=== PATIENT | female | born 1990 | race Caucasian/White ===

== ENCOUNTER 2018-01-05 04:17 | Outpatient (CLI) | payer MEDICAID ==
[2018-01-05 05:00] LABS: APPEARANCE,URINE SLIGHTLY-CLOUDY; BILIRUBIN,URINE NEGATIVE (NEGATIVE); COLOR,URINE YELLOW; GLUCOSE, URINE NEGATIVE (NEGATIVE); KETONES,URINE NEGATIVE (NEGATIVE); LEUKOCYTE ESTERASE,URINE NEGATIVE (NEGATIVE); NITRITE,URINE NEGATIVE (NEGATIVE); PROTEIN,URINE NEGATIVE (NEGATIVE); UROBILINOGEN,URINE NEGATIVE mg/dL (<2.0)
[2018-01-05 05:28] LABS: URINE AMPHETAMINES SCREEN NEGATIVE; URINE BARBITURATES SCREEN NEGATIVE; URINE BENZODIAZEPINES SCREEN NEGATIVE; URINE COCAINE SCREEN NEGATIVE; URINE MARIJUANA (THC) SCREEN NEGATIVE; URINE METHADONE SCREEN NEGATIVE; URINE PHENCYCLIDINE SCREEN NEGATIVE
[2018-01-05] MEDS ORDERED: RINGERS SOLUTION,LACTATED 1,000 ML IV PRN (05:57)
--- NOTE | 2018-01-05 08:22 | RADIOLOGY REPORT (SQ) ---
EXAM DESCRIPTION: U/S OB LIMITED COMPLETED DATE/TIME: 01/05/2018 8:08 am REASON FOR STUDY: cervical length 27 wk twins contractions COMPARISON: None. TECHNIQUE: Limited transvaginal grayscale ultrasound for evaluation of specific requested obstetrica l parameters. LIMITATIONS: None. FINDINGS: CERVICAL LENGTH: 3.1 cm Closed. Twin a: DAR: 4.3 cm largest Pocket. . FHR: 139 beats per minute. PRESENTATION: Cephalic. Twin B: DAR: 4.9 cm largest Pocket. . FHR: 140 beats per minute. PRESENTATION: Cephalic OTHER: No other significant findings. IMPRESSION: LIMITED OBSTETRICAL ULTRASOUND WITH MEASURED PARAMETERS DELINEATED ABOVE. Trimester of : Second trimester - 13 weeks 1 day to 27 weeks 6 days. TECHNICAL DOCUMENTATION: JOB ID: [id number] [employer]- All Rights Reserved
== END 2018-01-05 08:40 | disposition home or self-care (01) ==
LOC: LC 04:17
PROVIDERS: ATTEND Obstetrics & Gynecology Gynecology
PROC: 4A1HXCZ Monitoring of Products of Conception, Cardiac Rate, External Approach (ICD-10-PCS; principal; 2018-01-05)
DX: O60.02 Preterm labor without delivery, second trimester (principal); O30.002 Twin pregnancy, unspecified number of placenta and unspecified number of amniotic sacs, second trimester; Z3A.27 27 weeks gestation of pregnancy
CPT/HCPCS: 76815; 80307; 81001

== ENCOUNTER 2018-03-08 14:49 | Inpatient (IN) | payer MEDICAID ==
[2018-03-08] MEDS ORDERED: PENICILLIN G POTASSIUM 5,000,000 UNIT in DEXTROSE 5%-WATER 100 ML IV ONE (15:52)
[2018-03-08] MEDS ORDERED: OXYTOCIN/NORMAL SALINE 20 UNIT/1,000 ML RTUINJ IV PRN (15:52)
[2018-03-08] MEDS ORDERED: RINGERS SOLUTION,LACTATED 1,000 ML IV PRN (15:52)
[2018-03-08] MEDS ORDERED: RINGERS SOLUTION,LACTATED 300 ML IV ONE (15:52)
[2018-03-08 16:16] LABS: APPEARANCE,URINE CLEAR; BILIRUBIN,URINE NEGATIVE (NEGATIVE); COLOR,URINE STRAW; GLUCOSE, URINE NEGATIVE (NEGATIVE); KETONES,URINE NEGATIVE (NEGATIVE); LEUKOCYTE ESTERASE,URINE NEGATIVE (NEGATIVE); NITRITE,URINE NEGATIVE (NEGATIVE); PROTEIN,URINE NEGATIVE (NEGATIVE); URINE SPECIFIC GRAVITY 1.004; UROBILINOGEN,URINE NEGATIVE mg/dL (<2.0)
[2018-03-08 16:28] LABS: URINE AMPHETAMINES SCREEN NEGATIVE; URINE BARBITURATES SCREEN NEGATIVE; URINE BENZODIAZEPINES SCREEN NEGATIVE; URINE COCAINE SCREEN NEGATIVE; URINE MARIJUANA (THC) SCREEN NEGATIVE; URINE METHADONE SCREEN NEGATIVE; URINE PHENCYCLIDINE SCREEN NEGATIVE
[2018-03-08] MEDS ORDERED: PENICILLIN G-K 5 MILLION UNIT VIAL ONE ×2 (16:29→20:58)
[2018-03-08] MEDS ORDERED: OXYTOCIN/NORMAL SALINE 20 UNIT/1,000 ML RTUINJ ONE ×2 (16:30→21:44)
--- NOTE | 2018-03-08 16:31 | Admission Physical ---
Datetime Report Generated by CPN: 03/08/2018 16:31 CURRENT ADMISSION Chief Complaint: Scheduled Induction of Labor Indication for Induction: Indicated by Testing Indication for Induction- Other: MFM recommended delivery at 36wks due to [place]/Di TIUP Admit Impression : , Intrauterine ; No Active Labor Admit Plan: Admit to Unit; Initiate Labor Induction Protocol ALLERGIES Medication Allergies: No Medication Allergies: No Known Allergies (03/08/2018) Latex: No Latex Allergies Food Allergies: None Environmental Allergies: None OBSTETRICAL HISTORY EDC: 04/01/2018 00:00 : 1 Para: 0 Term: 0 : 0 SAB: 0 IAB: 0 Ectopic: 0 Livin Cesareans: 0 VBACs: 0 Multiple Births: 0 Gestational Diabetes: Yes Rh Sensitization: No Incompetent Cervix: No MICHAEL: No Infertility: No ART Treatment: No Uterine Anomaly: No IUGR: No Hx Previous C/S: No Macrosomia: No Hx Loss/Stillborn: No PIH: No Hx : No Placenta Previa/Abruption: No Depression/PP Depression: No PTL/PROM: No Post Hemorrhage: No Current Procedures: Ultrasound; NST Obstetrical History Comments: G1- current, mo-di twins SEE RECORDS Alcohol: No Marijuana : No Cocaine: No Other Illicit Drugs: No Cigarettes: Never Smoker. 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 Surgery: No Heart Disease: No Hosp/Surgery: No Autoimmune Disorder: No Anesthetic Complications: No Kidney Disease: No Abnormal Pap Smear: No Neuro/Epilepsy: No Psychiatric Disorders: No Other Medical Diseases: No Hepatitis/Liver Disease: No Significant Family History: No Varicosities/Phlebitis: No Trauma/Violence : No Thyroid Dysfunction: No Medical History Comments: Anemia INFECTIOUS HISTORY Gonorrhea: No Genital Herpes: No Chlamydia: No Tuberculosis: No Syphilis: No Hepatitis: No HIV/AIDS Exposure: No Rash or Viral Illness: No HPV: Yes Infectious History Comments: HPV 01/2017 PHYSICAL EXAM General: Normal HEENT: Normal Neurologic: Normal Thyroid: Deferred Heart: Normal Lungs: Normal Breast: Deferred Back: Normal Abdomen: Normal Genitourinary Exam: Normal Extremities: Normal DTRs: Normal Pelvic Type: Adequate Vital Signs: Reviewed VAGINAL EXAM Dilatation: 2 Effacement: 80 Station: -1 Contraction Comments: irreg MEMBRANES Membranes: Intact FETUS A EGA: 36.4 Monitoring: External US FHR- Baseline: 145 Variability: Moderate 6-25bpm Accelerations: 15X15 Decelerations: None FHR Category: Category I Presentation: Vertex Admit Comment: 27yo at 36+4ega presents for IOL due to MC/DA TIUP with GDM (not compliant with turning in logs), smoker, ASCUS with +HRHPV. Twin A did have polyhydramnios/Twin B marginal cord insertion. MFM recommended delivery in 36wks due to risk of TTTS in MC/DA TIUP. 1 hr GTT 199. GBS done on 03/07 but still pending. Will treat for GBS unknown with PCN. Will admit for IOL due to MFM recommendations. NICU and Anesthesia aware. ANticpate . Patient extensively counseled re: TIUP and vaginal delivery and risk of breech extraction if needed. Reassuring FWB x 2 and anticipate . FETUS B Monitoring: External US Variability: Moderate 6-25bpm Accelerations: 15X15 Decelerations: None FHR Category: Category I Presentation: Breech PLANS FOR LABOR AND DELIVERY Labor and Delivery: None Circumcision: N/A INFORMED CONSENT Informed Consent Obtained: Vaginal Delivery; Induction of Labor; Risks, Benefits and Alternatives Discussed Signature: with User ID: [email or web address]
[2018-03-08 16:36] LABS: ABSOLUTE EOSINOPHILS # (AUTO) 0.1 10^3/uL (0.0-0.6); ABSOLUTE LYMPHOCYTES (AUTO) 1.2 10^3/uL (0.5-4.7); ABSOLUTE NEUT (AUTO) 5.7 10^3/uL (1.7-8.2); BASOPHILS % (AUTO) 0.2 % (0-2); EOSINOPHILS % (AUTO) 0.7 % (0-6); HEMATOCRIT 29.3 % (36.0-47.0); LYMPHOCYTES % (AUTO) 14.5 % (13-45); MEAN CORPUSCULAR HEMOGLOBIN 29.7 pg (27.0-33.4); MEAN CORPUSCULAR HGB CONC 34.1 g/dL (32.0-36.0); MEAN CORPUSCULAR VOLUME 87 fl (80-97); MONOCYTES % (AUTO) 12.8 % (3-13); PLATELET COUNT 135 10^3/uL (150-450); RED BLOOD COUNT 3.36 10^6/uL (3.72-5.28); RED CELL DISTRIBUTION WIDTH 12.5 % (11.5-14.0); SEGMENTED NEUTROPHILS % (AUTO) 71.8 % (42-78); TOTAL CELLS COUNTED % (AUTO) 100 %
[2018-03-08] MEDS ORDERED: EPHEDRINE SULFATE INJ 50 MG/1 ML AMPULE ONE (19:45)
[2018-03-08] MEDS ORDERED: BUPIVACAINE HCL 0.25 % INJ/PF (2.5 MG/1 ML) 30 ML VIAL ONE (19:46)
[2018-03-08] MEDS ORDERED: FENTANYL/BUPIVACAINE/NS/PF 200 MCG/100 ML RTUINJ EPI ONE (19:46)
--- NOTE | 2018-03-08 20:24 | L&D Progress Notes ---
PROGRESS NOTES Datetime Report Generated by CPN: 03/08/2018 20:24 PROGRESS NOTE Impression: Normal Progression of Labor; Reassuring Heart Rate Procedures: Artificial ROM; Sterile Vag Exam Plan: Continue Present Management; Induction Informed Consent Obtained: Vaginal Delivery; Risks, Benefits and Alternatives Discussed Informed Consent Obtained: Vaginal Delivery; Induction of Labor; Risks, Benefits and Alternatives Discussed Vital Signs : Reviewed Comment: Pt now comfortable s/p epidural. cvx /-1. AROM with clear fluid. Will continue with pitocin and continue with IOL. Anticipate . Pt doing well. Dr. Chavira aware of patient status. VAGINAL EXAM Dilatation: 5 Dilatation: 2 Effacement: 90 Effacement: 80 Station: -1 Station: -1 Contractions: q 1-3 Contractions: irreg MEMBRANES Membranes: Ruptured Membranes: Intact Amniotic Fluid Color: Clear FETUS A FHR - Baseline: 145 Monitoring: External US Variability: Moderate 6-25bpm Accelerations: 15X15 Decelerations: None FHR Category: Category I Presentation: Vertex FETUS B FHR - Baseline: 155 Monitoring: External US Variability: Moderate 6-25bpm Accelerations: 15X15 Decelerations: None FHR Category: Category I Presentation: Breech Presentation: Breech SIGNATURE SIGNATURE: [id number];[id number] SIGNATURE: [id number] Signature: with User ID: [email or web address]
[2018-03-08] MEDS: PENICILLIN G POTASSIUM 2,500,000 UNIT in DEXTROSE 5%-WATER 50 ML IV SCH (21:03)
[2018-03-08] MEDS ORDERED: MISOPROSTOL 0.2 MG TABLET ONE (21:44)
[2018-03-08] MEDS ORDERED: LIDOCAINE 1% INJ-PF (10 MG/ML) 30 ML SDV ONE (21:44)
[2018-03-08] MEDS ORDERED: CITRIC ACID/SODIUM CITRATE ORAL SOLN 15 ML UDCUP ONE (21:45)
[2018-03-08] MEDS ORDERED: CEFAZOLIN 2 GM/D5W RTU 0 GM/0 ML RTUPB IV ONE (21:46)
[2018-03-09] MEDS ORDERED: GLYCERIN/WITCH HAZEL LEAF 1 EACH MED..PAD TP PRN (00:04)
[2018-03-09] MEDS ORDERED: ACETAMINOPHEN 325 MG TABLET PO PRN (00:04)
[2018-03-09] MEDS ORDERED: MAGNESIUM HYDROXIDE SUSP 30 ML UDCUP PO PRN (00:04)
[2018-03-09] MEDS ORDERED: NA PHOS,M-B/NA PHOS,DI-BA (ADULT) 133 ML ENEMA PR PRN (00:04)
[2018-03-09] MEDS ORDERED: MISOPROSTOL 0.2 MG TABLET PR PRN (00:04)
[2018-03-09] MEDS ORDERED: PROMETHAZINE HCL 25 MG SUPP.RECT PR PRN (00:04)
[2018-03-09] MEDS ORDERED: DIPHENHYDRAMINE HCL 25 MG CAPSULE PO PRN (00:04)
[2018-03-09] MEDS ORDERED: ACETAMINOPHEN WITH CODEINE #3 TABLET PO PRN (00:04)
[2018-03-09] MEDS ORDERED: PROMETHAZINE HCL 25 MG TABLET PO PRN (00:04)
[2018-03-09] MEDS ORDERED: DIPH/PERTUSS(ACELL)/TETANUS VAC/PF 0.5 ML SYR (>=10YO) IM PRN (00:04)
[2018-03-09] MEDS ORDERED: PSEUDOEPHEDRINE HCL 30 MG TABLET PO PRN (00:04)
[2018-03-09] MEDS ORDERED: DIBUCAINE 1% OINTMENT 28 GM TP PRN (00:04)
[2018-03-09] MEDS ORDERED: OXYTOCIN/NORMAL SALINE 20 UNIT/1,000 ML RTUINJ IV PRN (00:04)
[2018-03-09] MEDS ORDERED: ZOLPIDEM TARTRATE 5 MG TABLET PO PRN (00:04)
[2018-03-09] MEDS ORDERED: PROMETHAZINE HCL INJ 25 MG/1 ML VIAL IV PRN (00:04)
[2018-03-09] MEDS ORDERED: MEASLES,MUMPS&RUBELLA VACC/PF 0.5 ML VIAL SUBCUT PRN (00:04)
--- NOTE | 2018-03-09 00:20 | Warning Signs in Babies ---
VOD Warning Signs Datetime Report Generated by [facility]: 03/09/2018 00:20 VOD#608 -Warning Signs in Babies: Viewed with Parent(s)/Family (01/05/2018 04:19:Miryam Casillas RN)
[2018-03-09] MEDS: PENICILLIN G POTASSIUM 2,500,000 UNIT in DEXTROSE 5%-WATER 50 ML IV SCH (02:38)
[2018-03-09] MEDS: BENZOCAINE/MENTHOL AEROSOL SPRAY 56 ML TOP PRN ×2 (02:59→10:14)
[2018-03-09] MEDS: ACETAMINOPHEN WITH CODEINE #3 TABLET PO PRN ×2 (03:00→17:11)
[2018-03-09] MEDS: IBUPROFEN 800 MG TABLET PO SCH ×3 (06:37→21:40)
[2018-03-09] MEDS: PRENATAL VITAMIN W DHA CAPSULE PO SCH (10:13)
[2018-03-09] MEDS: DOCUSATE SODIUM 100 MG CAPSULE PO SCH ×2 (10:13→17:12)
[2018-03-09] MEDS: FAMOTIDINE 20 MG TABLET PO SCH ×2 (10:13→21:41)
[2018-03-09] MEDS: FERROUS SULFATE 325 MG TABLET PO SCH ×2 (10:13→17:12)
[2018-03-09] MEDS: SENNOSIDES/DOCUSATE 8.6-50 MG 1 EACH TABLET PO SCH (10:14)
--- NOTE | 2018-03-09 13:14 | PDOC PROGRESS REPORT ---
Subjective-OB Progress Note for:: 03/09/18 Physical Exam (OB) Vital Signs: Temp Pulse Resp BP Pulse Ox 98.5 F 63 16 120/74 98 03/09/18 08:29 03/09/18 08:29 03/09/18 08:29 03/09/18 08:29 03/09/18 08:29 Intake & Output 03/08/18 03/09/18 03/10/18 06:59 06:59 06:59 Weight 67.1 kg - Lochia Lochia Amount: Scant < 10 ml Lochia Color: Rubra/Red - Abdomen Description: Soft, Round Hernia Present: No Bowel Sounds: Normoactive Flatus Presence: Present Stool: Yes Fundal Description: Firm, Midline Fundal Height: u/u - u/2 Objective-Diagnostic Laboratory: 03/08/18 16:10 03/08/18 03/08/18 03/08/18 15:05 16:10 16:10 WBC 8.0 RBC 3.36 L Hgb 10.0 L Hct 29.3 L MCV 87 MCH 29.7 MCHC 34.1 RDW 12.5 Plt Count 135 L Seg Neutrophils % 71.8 Lymphocytes % 14.5 Monocytes % 12.8 Eosinophils % 0.7 Basophils % 0.2 Absolute Neutrophils 5.7 Absolute Lymphocytes 1.2 Absolute Monocytes 1.0 Absolute Eosinophils 0.1 Absolute Basophils 0.0 Urine Color STRAW Urine Appearance CLEAR Urine pH 7.0 Ur Specific Armbrust 1.004 Urine Protein NEGATIVE Urine Glucose (UA) NEGATIVE Urine Ketones NEGATIVE Urine Blood NEGATIVE Urine Nitrite NEGATIVE Ur Leukocyte Esterase NEGATIVE Urine WBC (Auto) 1 Urine RBC (Auto) 1 Blood Type A POSITIVE Antibody Screen NEGATIVE
[2018-03-10] MEDS: IBUPROFEN 800 MG TABLET PO SCH ×3 (07:09→21:49)
[2018-03-10 08:47] LABS: HEMATOCRIT 28.9 % (36.0-47.0); HEMOGLOBIN 9.8 g/dL (12.0-15.5); MEAN CORPUSCULAR HEMOGLOBIN 29.6 pg (27.0-33.4); MEAN CORPUSCULAR VOLUME 87 fl (80-97); PLATELET COUNT 138 10^3/uL (150-450); RED BLOOD COUNT 3.33 10^6/uL (3.72-5.28); RED CELL DISTRIBUTION WIDTH 12.5 % (11.5-14.0); WHITE BLOOD COUNT 7.5 10^3/uL (4.0-10.5)
--- NOTE | 2018-03-10 09:52 | PDOC PROGRESS REPORT ---
Subjective-OB Progress Note for:: 03/10/18 Subjective: Doing well, holding babies, babies unable to go today, breasfeeding, ambulating , voiding Physical Exam (OB) Vital Signs: Temp Pulse Resp BP Pulse Ox 97.4 F 68 18 110/73 100 03/10/18 08:09 03/10/18 08:09 03/10/18 08:09 03/10/18 08:09 03/10/18 08:09 Intake & Output 03/09/18 03/10/18 03/11/18 06:59 06:59 06:59 Weight 67.1 kg - Lochia Lochia Amount: Scant < 10 ml Lochia Color: Rubra/Red - Abdomen Description: Soft Hernia Present: No Fundal Description: Firm, Midline Fundal Height: u/u - u/2 Objective-Diagnostic Laboratory: 03/10/18 07:39 03/10/18 07:39 WBC 7.5 RBC 3.33 L Hgb 9.8 L Hct 28.9 L MCV 87 MCH 29.6 MCHC 34.0 RDW 12.5 Plt Count 138 L Assessment and Plan(PN) - Assessment and Plan (1) delivery Is this a current diagnosis for this admission?: Yes (2) Twin , delivered vaginally, current hospitalization Is this a current diagnosis for this admission?: Yes (3) Monochorionic diamniotic twin gestation Qualifiers: Trimester: first trimester Qualified Code(s): O30.031 - Twin , monochorionic/diamniotic, first trimester Is this a current diagnosis for this admission?: Yes (4) Gestational diabetes Qualifiers: Gestational diabetes mellitus control: diet-controlled Is this a current diagnosis for this admission?: Yes - Time Spent with Patient Time with patient: Less than 15 minutes Medications reviewed and adjusted accordingly: Yes - Disposition Anticipated Discharge: Home Within: within 24 hours
[2018-03-10] MEDS: PRENATAL VITAMIN W DHA CAPSULE PO SCH (10:34)
[2018-03-10] MEDS: DOCUSATE SODIUM 100 MG CAPSULE PO SCH ×2 (10:34→17:13)
[2018-03-10] MEDS: SENNOSIDES/DOCUSATE 8.6-50 MG 1 EACH TABLET PO SCH (10:35)
[2018-03-10] MEDS: FERROUS SULFATE 325 MG TABLET PO SCH ×2 (10:35→17:13)
[2018-03-10] MEDS: FAMOTIDINE 20 MG TABLET PO SCH ×2 (10:35→21:49)
[2018-03-11] MEDS: IBUPROFEN 800 MG TABLET PO SCH (05:00)
--- NOTE | 2018-03-11 09:13 | PDOC PROGRESS REPORT ---
Subjective-OB Progress Note for:: 03/11/18 Subjective: Doing well, no c/o, ready to go home, not sure if both babies are going, breast feeding, eating well, scant bleeding Physical Exam (OB) Vital Signs: Temp Pulse Resp BP Pulse Ox 98.4 F 71 16 120/76 99 03/10/18 19:54 03/10/18 19:54 03/10/18 19:54 03/10/18 19:54 03/10/18 19:54 - PIH/Pre-Eclampsia DTR's: 2 + Clonus: Negative Headache: Absent Epigastric Pain: No Visual Changes: No - Lochia Lochia Amount: Scant < 10 ml Lochia Color: Rubra/Red - Abdomen Description: Tender, Soft, Round Hernia Present: No Fundal Description: Firm, Midline Fundal Height: u/u - u/2 Objective-Diagnostic Laboratory: 03/10/18 07:39 Assessment and Plan(PN) - Assessment and Plan (1) delivery Is this a current diagnosis for this admission?: Yes (2) Twin , delivered vaginally, current hospitalization Is this a current diagnosis for this admission?: Yes (3) Monochorionic diamniotic twin gestation Qualifiers: Trimester: first trimester Qualified Code(s): O30.031 - Twin , monochorionic/diamniotic, first trimester Is this a current diagnosis for this admission?: Yes (4) Gestational diabetes Qualifiers: Gestational diabetes mellitus control: diet-controlled Is this a current diagnosis for this admission?: Yes - Time Spent with Patient Time with patient: Less than 15 minutes Medications reviewed and adjusted accordingly: Yes - Disposition Anticipated Discharge: Home Within: Other - home today
--- NOTE | 2018-03-11 09:17 | PDOC DISCHARGE SUMMARY ---
Final Diagnosis Discharge Date: 03/11/18 - Final Diagnosis (1) delivery Is this a current diagnosis for this admission?: Yes (2) Twin , delivered vaginally, current hospitalization Is this a current diagnosis for this admission?: Yes (3) Monochorionic diamniotic twin gestation Is this a current diagnosis for this admission?: Yes (4) Gestational diabetes Is this a current diagnosis for this admission?: Yes Discharge Data - Discharge Medication Home Medications: Prenat 115/Iron Fum/Folic/Dss [ 19 Tablet] 1 tab PO DAILY 01/05/18 Gestational Age: 36.4 Reason(s) for Admission: Induction of Labor, Gestional Diabetes Procedures: NST, Ultrasound Intrapartum Procedure(s): Spontaneous Vaginal Delivery Complication(s): Laceration-Perineal Laceration-Degree: 1st - [place] Data Baby 1 Female Home with Mother: Yes Complications: No Baby 2 Female Home with Mother: Yes Complications: No - Diagnosis Test Laboratory: Temp Pulse Resp BP Pulse Ox 98.4 F 71 16 120/76 99 03/10/18 19:54 03/10/18 19:54 03/10/18 19:54 03/10/18 19:54 03/10/18 19:54 03/08/18 03/08/18 03/10/18 15:05 16:10 07:39 RBC 3.36 L 3.33 L Hgb 10.0 L 9.8 L Hct 29.3 L 28.9 L Urine Opiates Screen NEGATIVE - Discharge information/Instructions Discharge Activity: Activity As Tolerated, No Lifting Over 10 Pounds, No Lifting /Push/Pulling, Pelvic Rest Discharge Diet: As Tolerated, Regular Disposition: HOME, SELF-CARE Follow up with: [facility] in: 4, Weeks
--- NOTE | 2018-03-11 09:29 | Delivery Summary ---
Del Sum A-C Datetime Report Generated by CPN: 03/11/2018 09:29 DELIVERY PERSONNEL DELIVERY PERSONNEL: [id number] Delivery Doctor:: Rabia Bolanos MD Anesthesiologist:: Elijah Chavira MD PHP ARCHITECT:: Guadalupe Barboza CRNA Labor and Delivery Nurse:: Miryam Cifuentes RN Labor and Delivery Nurse:: Melissa Ghotra RN Nursery Nurse:: Tatyana Gonzalez RN Nursery Nurse:: Apryl Shabazz RN Medical Affairs Director/EARLY CHILDHOOD COORDINATOR: Lilliam Garsia CNA MATERNAL INFORMATION Delivery Anesthesia: Epidural Medications After Delivery: Pitocin Bolus-Please Comment; Pitocin Drip 20 Units/1000ml NSS Estimated Blood Loss (ml): 250 Maternal Complications: None Provider Comments: Called for evaluation due to pelvic pressure. Cvx c/c/+2. Pt comfortable with epidural. NICU and Anesthesia Notified regarding moving to the OR for delivery of TIUP. Known Vertex/Breech presentation. Risks of Twin vaginal delivery and risks of breech extractions reviewed with patient previously. All questions answered. Upon arrival to the OR, patient moved to the bed and positioned. Anesthesia and NICU present. Cvx c/c/+2 and patient began pushing and Baby A and B tolerating well. Baby A VFI delivered in EDWARD presentation with right compound hand. No nuchal cord. Shoulders and body delivered without difficulty. Cord doubly clamped and cut and to maternal abdomen for NRP. One clamp placed on Baby A cord (placenta side). Position of Baby B assessed and noted vertex and baby B quickly descending. 2 maternal pushes effectively delivered Baby B delivered in Direct OA presentation. No nuchal cord. Shoulders and body delivered without difficulty. Cord doubly clamped and cut and infant to NICU team. Placenta delivered intact spontaneously. FF at U. Cytotec 1000mcg per rectum placed for uterine tone. 1st degree perineal laceration and right labial laceration repaired in usual fashion. Good hemostasis. Baby A Apgars 9/9. Baby B Apgars 8/9. LABOR SUMMARY EDC: 04/01/2018 00:00 No. Babies in Womb: 2 Attempted: No Labor Anesthesia: Epidural LABOR INFORMATION Reason for Induction: Indicated by Testing Reason for Induction- Other: [place]/Di TIUP, MFM recommended Delivery 36wks Onset of Labor: 03/08/2018 18:59 Complete Dilatation: 03/08/2018 22:45 Oxytocin: Induction Group B Beta Strep: UNKNOWN Antibiotics # of Doses: 2 Antibiotics Time of Last Dose: 2102 Name of Antibiotic Given: Penicilin MEMBRANES Membranes Rupture Method: Artificial Rupture of Membranes: 03/08/2018 20:19 Length of Rupture (hr): 3.20 Amniotic Fluid Color: Clear Amniotic Fluid Amount: Moderate Amniotic Fluid Odor: Normal STAGES OF LABOR Stage 1 hr: 3 Stage 1 min: 46 Stage 2 hr: 0 Stage 2 min: 46 Stage 3 hr: 0 Stage 3 min: 5 Total Time in Labor hr: 4 Total Time in Labor min: 37 VAGINAL DELIVERY Episiotomy: None Episiotomy: None Laceration #1: Perineal Laceration #1: Vaginal Laceration Extension #1: First Degree Laceration #2: Vaginal Laceration Extension #2: N/A Laceration Repair: Yes Laceration Repair: Yes Laceration Repair Note: Right labial laceration repaired in usual fashion. Sponge Count Correct: Yes Sharps Count Correct: Yes CSECTION DELIVERY Primary Indication: N/A Secondary Indication: N/A CSection Incision: N/A BABY A INFORMATION Delivery Date/Time: 03/08/2018 23:31 Method of Delivery: Vaginal Born in Route : No : N/A Forceps: N/A Vacuum Extraction: N/A Shoulder Dystocia : No PRESENTATION/POSITION BABY A Presentation: Cephalic Presentation: Cephalic Cephalic Presentation: Vertex Vertex Position: Right Occipital Anterior Breech Presentation: N/A PLACENTA INFORMATION BABY A Placenta Delivery Time : 03/08/2018 23:36 Placenta Method of Delivery: Spontaneous Placenta Status: Delivered SCORES BABY A Heart Rate 1 min: >100 bpm Resp Effort 1 min: Good Cry Reflex Irritability 1 min: Cough or Sneeze or Pulls Away Muscle Tone 1 min: Active Motion Color 1 min: Body [place], Extremities Blue Resuscitation Effort 1 min: Tactile Stimulation SCORE 1 MIN: 9 Heart Rate 5 min: >100 bpm Resp Effort 5 min: Good Cry Reflex Irritability 5 min: Cough or Sneeze or Pulls Away Muscle Tone 5 min: Active Motion Color 5 min: Body [place], Extremities Blue Resuscitation Effort 5 min: Tactile Stimulation SCORE 5 MIN: 9 INFANT INFORMATION BABY A Gestational Age at Delivery: 36.4 Gestational Status: Late - 34- 36.6 Weeks Infant Outcome : Liveborn Condition : Stable Sex: Female IDENTIFICATION BABY A Infant Verification Date/Time: 03/08/2018 23:59 ID Band Number: [id number] Mother's Name Verified: Yes Infant RN Verifying : B Cano, RN Additional Verifying Personnel: Mirta Hopkins, RN WEIGHT/LENGTH BABY A Birthweight (gm): 2285 Weight (lb): 5 Infant Weight (oz): 1 Length (in): 18.50 Length (cm): 46.99 CORD INFORMATION BABY A No. Cord Vessels: 3 Nuchal Cord : Around Neck x1, Loose Cord Blood Taken: Yes-For Storage (Mom's Blood type +) Infant Suction: Mouth; Nose ASSESSMENT BABY A Complications: None Physical Findings at Delivery: Within Normal Limits Respirations: Appears Normal Skin to Skin: No (Annotations: infant unavailable) Skin to Skin: Yes Transferred To: [facility] BABY B INFORMATION Infant Delivery Date/Time: 03/08/2018 23:33 Method of Delivery : Vaginal Born in Route : No : N/A Forceps : N/A Vacuum Extraction: N/A Shoulder Dystocia : No SHOULDER DYSTOCIA BABY B Delivery Date/Time: 03/08/2018 23:33 PRESENTATION/POSITION BABY B Presentation : Cephalic Cephalic Position : Vertex Vertex Position: Direct Occiptal Anterior Breech Position: N/A ROM/PLACENTA INFO BABY B Rupture of Membranes: 03/08/2018 23:33 Length of Rupture (hr): 0.00 Placenta Delivery Time : 03/09/2018 23:36 Placenta Method of Delivery: Spontaneous Placental Status : Delivered SCORES BABY B Heart Rate 1 min: >100 bpm Resp Effort 1 min: Good Cry Reflex Irritability 1 min: Cough or Sneeze or Pulls Away Muscle Tone 1 min: Some Flexion of Extremities Color 1 min: Body [place], Extremities Blue Resuscitation Effort 1 min: Tactile Stimulation SCORE 1 MIN: 8 Heart Rate 5 min: >100 bpm Resp Effort 5 min: Good Cry Reflex Irritability 5 min: Cough or Sneeze or Pulls Away Muscle Tone 5 min: Active Motion Color 5 min: Body [place], Extremities Blue Resuscitation Effort 5 min: Tactile Stimulation SCORE 5 MIN: 9 INFORMATION BABY B Gestational Age at Delivery: 36.4 Gestational Status : Late - 34- 36.6 Weeks Outcome : Liveborn Condition : Stable Infant Sex : Female IDENTIFICATION BABY B Infant Verification Date/Time: 03/09/2018 00:04 ID Band Number : [id number] Mother's Name Verified: Yes RN Verifying : B Cano, RN Additional Verifying Personnel: K Paradise, RN WEIGHT/LENGTH BABY B Birthweight (gm): 2040 Weight (lb) : 4 Infant Weight (oz): 8 Infant Length (in): 18.00 Infant Length (cm): 45.72 CORD INFORMATION BABY B No. Cord Vessels : 3 Nuchal Cord : N/A Cord Blood Taken : Yes-For Storage (Mom's Blood Type +) Suction : Mouth; Nose ASSESSMENT BABY B Skin to Skin: Yes SIGNATURES Signature: with User ID: [email or web address]
[2018-03-11] MEDS: FAMOTIDINE 20 MG TABLET PO SCH (09:31)
[2018-03-11] MEDS: FERROUS SULFATE 325 MG TABLET PO SCH (09:31)
[2018-03-11] MEDS: PRENATAL VITAMIN W DHA CAPSULE PO SCH (09:31)
[2018-03-11] MEDS: SENNOSIDES/DOCUSATE 8.6-50 MG 1 EACH TABLET PO SCH (09:31)
[2018-03-11] MEDS: DOCUSATE SODIUM 100 MG CAPSULE PO SCH (09:32)
[2018-03-11 10:08] VITALS: BP 111/74
== END 2018-03-11 12:15 | disposition home or self-care (01) | DRG 775 ==
LOC: LR 14:49 → 2S 03-09 02:23
PROVIDERS: ADMIT Student in an Organized Health Care Education/Training Program; ATTEND Student in an Organized Health Care Education/Training Program
PROC: 10E0XZZ Delivery of Products of Conception, External Approach (ICD-10-PCS; principal; 2018-03-08)
PROC: 0HQ9XZZ Repair Perineum Skin, External Approach (ICD-10-PCS; 2018-03-08)
PROC: 10907ZC Drainage of Amniotic Fluid, Therapeutic from Products of Conception, Via Natural or Artificial Opening (ICD-10-PCS; 2018-03-08)
PROC: 3E033VJ Introduction of Other Hormone into Peripheral Vein, Percutaneous Approach (ICD-10-PCS; 2018-03-08)
PROC: 4A1HXCZ Monitoring of Products of Conception, Cardiac Rate, External Approach (ICD-10-PCS; 2018-03-08)
DX: O60.14X0 Preterm labor third trimester with preterm delivery third trimester, not applicable or unspecified (principal); O70.0 First degree perineal laceration during delivery; O30.033 Twin pregnancy, monochorionic/diamniotic, third trimester; O24.420 Gestational diabetes mellitus in childbirth, diet controlled; O99.334 Smoking (tobacco) complicating childbirth; F17.210 Nicotine dependence, cigarettes, uncomplicated; O40.3XX1 Polyhydramnios, third trimester, fetus 1; O32.6XX1 Maternal care for compound presentation, fetus 1; O69.81X1 Labor and delivery complicated by cord around neck, without compression, fetus 1; Z3A.36 36 weeks gestation of pregnancy; Z37.2 Twins, both liveborn
CPT/HCPCS: 36415; 80307; 81001; 82962; 85025; 85027; 86592; 86850; 86900; 86901; 88307; C1726; J0690; J2540; J2590; J3490

== ENCOUNTER 2020-07-17 11:42 | Outpatient (CLI) | payer MEDICAID ==
[2020-07-17 12:25] LABS: APPEARANCE,URINE SLIGHTLY-CLOUDY; BILIRUBIN,URINE NEGATIVE (NEGATIVE); COLOR,URINE YELLOW; GLUCOSE, URINE NEGATIVE (NEGATIVE); KETONES,URINE NEGATIVE (NEGATIVE); LEUKOCYTE ESTERASE,URINE SMALL (NEGATIVE); NITRITE,URINE NEGATIVE (NEGATIVE); PROTEIN,URINE NEGATIVE (NEGATIVE)
[2020-07-17 12:47] LABS: URINE AMPHETAMINES SCREEN NEGATIVE; URINE BARBITURATES SCREEN NEGATIVE; URINE BENZODIAZEPINES SCREEN NEGATIVE; URINE COCAINE SCREEN NEGATIVE; URINE MARIJUANA (THC) SCREEN NEGATIVE; URINE METHADONE SCREEN NEGATIVE; URINE PHENCYCLIDINE SCREEN NEGATIVE
== END 2020-07-17 12:42 | disposition home or self-care (01) ==
LOC: LC 11:42
PROVIDERS: ATTEND Obstetrics & Gynecology
DX: O47.1 False labor at or after 37 completed weeks of gestation (principal); Z3A.37 37 weeks gestation of pregnancy
CPT/HCPCS: 59025; 80307; 81005; 84112

== ENCOUNTER 2020-08-05 06:41 | Inpatient (IN) | payer MEDICAID ==
[2020-08-05] MEDS ORDERED: RINGERS SOLUTION,LACTATED 1,000 ML IV PRN ×2 (06:58→07:00)
[2020-08-05] MEDS ORDERED: ACETAMINOPHEN 325 MG TABLET PO PRN (07:00)
[2020-08-05] MEDS ORDERED: OXYTOCIN/0.9 % SODIUM CHLORIDE 30 UNIT/500 ML RTUINJ IV PRN ×2 (07:00→15:55)
[2020-08-05] MEDS ORDERED: MAG HYDROX/AL HYDROX/SIMETH SUSP 30 ML UDCUP PO PRN (07:00)
[2020-08-05] MEDS ORDERED: RINGERS SOLUTION,LACTATED 300 ML IV ONE (07:00)
[2020-08-05] MEDS ORDERED: OXYTOCIN 10 UNIT/ML VIAL ONE (07:24)
[2020-08-05] MEDS ORDERED: MISOPROSTOL 0.2 MG TABLET ONE (07:24)
[2020-08-05] MEDS ORDERED: LIDOCAINE 1% INJ-PF (10 MG/ML) 30 ML SDV ONE (07:24)
[2020-08-05] MEDS ORDERED: OXYTOCIN/0.9 % SODIUM CHLORIDE 30 UNIT/500 ML RTUINJ ONE (07:25)
--- NOTE | 2020-08-05 07:59 | Admission Physical ---
Datetime Report Generated by CPN: 08/05/2020 07:30 CURRENT ADMISSION Chief Complaint: Scheduled Induction of Labor Indication for Induction: Maternal Diabetes Admit Impression : Term, Intrauterine ; Induction of Labor Admit Plan: Admit to Unit; Initiate Labor Induction Protocol ALLERGIES Medication Allergies: No Medication Allergies: No Known Allergies (07/17/2020) Latex: No Latex Allergies OBSTETRICAL HISTORY EDC: 08/04/2020 00:00 : 2 Para: 1 Term: 0 : 1 SAB: 0 IAB: 0 Ectopic: 0 Livin Cesareans: 0 VBACs: 0 Multiple Births: 1 Gestational Diabetes: Yes Rh Sensitization: No Incompetent Cervix: No MICHAEL: No Infertility: No ART Treatment: No Uterine Anomaly: No IUGR: No Hx Previous C/S: No Macrosomia: No Hx Loss/Stillborn: No PIH: No Hx : No Placenta Previa/Abruption: No Depression/PP Depression: No PTL/PROM: No Post Hemorrhage: No Current Procedures: Ultrasound; NST Obstetrical History Comments: g1-2018, 36+4, twin girls, 5lb 1 oz/4.8oz. , gdm g2-current , subchorionic bleed at 8 weeks SEE RECORDS Alcohol: No Marijuana : No Cocaine: No Other Illicit Drugs: No Cigarettes: Former Smoker. [id number] MEDICAL HISTORY Diabetes: Yes Diabetes Type: Gestational Diabetes Blood Transfusion: No Pulmonary Disease (Asthma, TB): No Breast Disease: No Hypertension: No Oracle Specialist Surgery: No Heart Disease: No Hosp/Surgery: Yes Autoimmune Disorder: No Anesthetic Complications: No Kidney Disease: No Abnormal Pap Smear: Yes Neuro/Epilepsy: No Psychiatric Disorders: No Other Medical Diseases: No Hepatitis/Liver Disease: No Significant Family History: No Varicosities/Phlebitis: No Trauma/Violence : No Thyroid Dysfunction: No Medical History Comments: GDM, past smoker INFECTIOUS HISTORY Gonorrhea: No Genital Herpes: No Chlamydia: No Tuberculosis: No Syphilis: No Hepatitis: No HIV/AIDS Exposure: No Rash or Viral Illness: No HPV: No PHYSICAL EXAM General: Normal HEENT: Normal Neurologic: Normal Thyroid: Normal Heart: Normal Lungs: Normal Breast: Normal Back: Normal Abdomen: Normal Genitourinary Exam: Normal Extremities: Normal DTRs: Normal Pelvic Type: Adequate Vital Signs: Reviewed; Within Normal Limits VAGINAL EXAM Dilatation: 1 Effacement: 50 Station: -3 MEMBRANES Pooling: Negative Membranes: Intact FETUS A EGA: 40.1 Monitoring: External US FHR- Baseline: 130 Variability: Moderate 6-25bpm Accelerations: 15X15 Decelerations: None FHR Category: Category I Estimated Weight (gm): 3900 Presentation: Vertex Admit Comment: efw at 36 wks 3120 gms (6 lbs 14 oz). proceed with pitocin induction PLANS FOR LABOR AND DELIVERY Labor and Delivery: None Pain Management: Epidural Feeding Preference: Breast Benefit of Breast Feed Discussed: Yes Circumcision: Yes INFORMED CONSENT Signature: with User ID: [email or web address]
[2020-08-05 08:54] LABS: ABSOLUTE EOSINOPHILS # (AUTO) 0.1 10^3/uL (0.0-0.6); ABSOLUTE LYMPHOCYTES (AUTO) 1.7 10^3/uL (0.5-4.7); ABSOLUTE MONOCYTES (AUTO) 0.7 10^3/uL (0.1-1.4); EOSINOPHILS % (AUTO) 0.9 % (0-6); TOTAL CELLS COUNTED % (AUTO) 100 %
[2020-08-05 08:57] LABS: APPEARANCE,URINE SLIGHTLY-CLOUDY; BILIRUBIN,URINE NEGATIVE (NEGATIVE); COLOR,URINE YELLOW; GLUCOSE, URINE NEGATIVE (NEGATIVE); KETONES,URINE NEGATIVE (NEGATIVE); LEUKOCYTE ESTERASE,URINE LARGE (NEGATIVE); NITRITE,URINE NEGATIVE (NEGATIVE); PROTEIN,URINE NEGATIVE (NEGATIVE); URINE SPECIFIC GRAVITY 1.014
[2020-08-05 09:00] LABS: ABSOLUTE NEUT (AUTO) 5.2 10^3/uL (1.7-8.2); BASOPHILS % (AUTO) 0.1 % (0-2); HEMATOCRIT 30.2 % (36.0-47.0); HEMOGLOBIN 10.6 g/dL (12.0-15.5); LYMPHOCYTES % (AUTO) 22.1 % (13-45); MEAN CORPUSCULAR HEMOGLOBIN 29.7 pg (27.0-33.4); MEAN CORPUSCULAR VOLUME 85 fl (80-97); MONOCYTES % (AUTO) 9.4 % (3-13); PLATELET COUNT 153 10^3/uL (150-450); RED BLOOD COUNT 3.56 10^6/uL (3.72-5.28); RED CELL DISTRIBUTION WIDTH 12.3 % (11.5-14.0); SEGMENTED NEUTROPHILS % (AUTO) 67.5 % (42-78); WHITE BLOOD COUNT 7.8 10^3/uL (4.0-10.5)
[2020-08-05 09:18] LABS: URINE AMPHETAMINES SCREEN NEGATIVE; URINE BARBITURATES SCREEN NEGATIVE; URINE BENZODIAZEPINES SCREEN NEGATIVE; URINE COCAINE SCREEN NEGATIVE; URINE MARIJUANA (THC) SCREEN NEGATIVE; URINE METHADONE SCREEN NEGATIVE; URINE PHENCYCLIDINE SCREEN NEGATIVE
--- NOTE | 2020-08-05 11:06 | L&D Progress Notes ---
PROGRESS NOTES Datetime Report Generated by CPN: 08/05/2020 11:05 PROGRESS NOTE Impression: Reassuring Heart Rate Procedures: Artificial ROM; Sterile Vag Exam Plan: Induction; Anticipate Vaginal Delivery Plan Other: may have epidural when desires Vital Signs : Reviewed; Within Normal Limits Comment: Pitocin infusing for IOL at 40 wks. Hx GDM. GBS negative. Ve 3/50/-1, vtx, AROM w/ clear fluid noted. Pt plans epidural when she becomes uncomfortable. Position changed encouraged. Attending MD is Dr Ellis VAGINAL EXAM Dilatation: 1 Effacement: 50 Station: -3 LAST VAGINAL EXAM-NURSING Nursing Exam Dilitation: 3.0 Nursing Exam Effacement: 50 Nursing Exam Station: -1 Nursing Exam Contractions: RN at bedside adjusting monitor MEMBRANES Pooling: Negative Membranes: Ruptured Amniotic Fluid Color: Clear FETUS A FHR - Baseline: 140 Monitoring: External US Variability: Moderate 6-25bpm Accelerations: 15X15 Decelerations: None : 40.1 Estimated Weight (gm): 3900 Presentation: Vertex SIGNATURE SIGNATURE: [id number];[id number];[id number] Assignment: Anjana Ellis MD Signature: with User ID: Milton : with User ID: Milton
[2020-08-05] MEDS ORDERED: ONDANSETRON HCL INJ/PF 4 MG/2 ML SDV IV PRN (11:48)
[2020-08-05] MEDS ORDERED: NALBUPHINE HCL INJ 10 MG/1 ML AMPULE INJ ONE (11:48)
[2020-08-05] MEDS ORDERED: NALBUPHINE HCL INJ 10 MG/1 ML AMPULE ONE (11:50)
[2020-08-05] MEDS ORDERED: ONDANSETRON HCL INJ/PF 4 MG/2 ML SDV ONE ×2 (11:50→18:04)
[2020-08-05] MEDS ORDERED: ROPIVACAINE HCL 0.2% INJ/PF (2 MG/ML) 20 ML SDV ONE (13:07)
[2020-08-05] MEDS ORDERED: FENTANYL/BUPIVACAINE/NS/PF 300 MCG/150 ML RTUINJ EPI ONE (13:07)
[2020-08-05] MEDS ORDERED: EPHEDRINE SULFATE INJ 50 MG/1 ML AMPULE ONE (13:07)
--- NOTE | 2020-08-05 14:12 | L&D Progress Notes ---
PROGRESS NOTES Datetime Report Generated by CPN: 08/05/2020 14:12 PROGRESS NOTE Impression: Reassuring Heart Rate Procedures: Artificial ROM; Sterile Vag Exam Plan: Anticipate Vaginal Delivery Plan Other: epidural placed Vital Signs : Reviewed; Within Normal Limits Comment: Epidural in place, pt is 6 cm per RN exam after the epidural. Pitocin infusing. Positions changes encouraged. Anticipate . VAGINAL EXAM Dilatation: 1 Effacement: 50 Station: -3 LAST VAGINAL EXAM-NURSING Nursing Exam Dilitation: 6.0 Nursing Exam Effacement: 80 Nursing Exam Station: -1 Nursing Exam Contractions: RN at bedside adjusting monitor MEMBRANES Pooling: Negative Membranes: Ruptured Amniotic Fluid Color: Clear FETUS A FHR - Baseline: 140 Monitoring: External US Variability: Moderate 6-25bpm Accelerations: 15X15 Decelerations: None FHR Category: Category I : 40.1 Estimated Weight (gm): 3900 Presentation: Vertex SIGNATURE SIGNATURE: [id number];[id number];[id number] Assignment: Anjana Ellis MD Signature: with User ID: Milton : with User ID: Milton
[2020-08-05] MEDS ORDERED: MEASLES,MUMPS&RUBELLA VACC/PF 0.5 ML VIAL SUBCUT PRN (15:55)
[2020-08-05] MEDS ORDERED: MAGNESIUM HYDROXIDE SUSP 30 ML UDCUP PO PRN (15:55)
[2020-08-05] MEDS ORDERED: PROMETHAZINE HCL INJ 25 MG/1 ML VIAL IV PRN (15:55)
[2020-08-05] MEDS ORDERED: GLYCERIN/WITCH HAZEL LEAF 1 EACH MED..WIPE TP PRN (15:55)
[2020-08-05] MEDS ORDERED: ACETAMINOPHEN 650 MG SUPP.RECT PR PRN (15:55)
[2020-08-05] MEDS ORDERED: DIBUCAINE 1% OINTMENT 28 GM TP PRN (15:55)
[2020-08-05] MEDS ORDERED: PROMETHAZINE HCL 25 MG TABLET PO PRN (15:55)
[2020-08-05] MEDS ORDERED: PSEUDOEPHEDRINE HCL 30 MG TABLET PO PRN (15:55)
[2020-08-05] MEDS ORDERED: PROMETHAZINE HCL 25 MG SUPP.RECT PR PRN (15:55)
[2020-08-05] MEDS ORDERED: ZOLPIDEM TARTRATE 5 MG TABLET PO PRN (15:55)
[2020-08-05] MEDS ORDERED: DIPH/PERTUSS(ACELL)/TETANUS VAC/PF 0.5 ML SYR (>=10YO) IM PRN (15:55)
[2020-08-05] MEDS ORDERED: NA PHOS,M-B/NA PHOS,DI-BA (ADULT) 133 ML ENEMA PR PRN (15:55)
[2020-08-05] MEDS ORDERED: ACETAMINOPHEN WITH CODEINE #3 TABLET PO PRN (15:55)
[2020-08-05] MEDS ORDERED: DIPHENHYDRAMINE HCL 25 MG CAPSULE PO PRN (15:55)
[2020-08-05] MEDS ORDERED: IBUPROFEN 800 MG TABLET ONE (16:13)
[2020-08-05] MEDS: IBUPROFEN 800 MG TABLET PO SCH ×2 (16:17→22:14)
--- NOTE | 2020-08-05 16:53 | Birth Certificate Data ---
Cert Data Datetime Report Generated by CPJorge: 08/05/2020 16:53 CERTIFICATE DATA 47a. Care: Yes (07/17/2020 11:45:Diana Hopkins RN) 47b. Date of First Visit: 12/24/2019 00:00 (07/17/2020 11:45:Diana Hopkins RN) 47c. Date of Last Visit: 08/04/2020 00:00 (07/17/2020 11:45:Diana Hopkins RN) 48a. Number of Prev Live Births: 2 (07/17/2020 11:45:Graciela Haas RN) 48b. Now Livin (07/17/2020 11:45:Marie Dempsey RN) 48c. Live Births Now : 0 (07/17/2020 11:45:QS system process) 48d. Date of Last Live : 03/08/2018 00:00 (07/17/2020 11:45:Graciela Haas RN) 48e. Losses: 0 (07/17/2020 11:45:Graciela Haas RN) RISK FACTORS IN THIS 49a. Diabetes: Yes (07/17/2020 11:45:Graciela Haas RN) Type of Diabetes: Gestational Diabetes (07/17/2020 11:45:Graciela Haas RN) 49b. Hypertension: No (07/17/2020 11:45:Lilliam Crane RN) 49c. Previous Births: 1 (07/17/2020 11:45:Marie Dempsey RN) 49d. Stillborns: No (07/17/2020 11:45:Lilliam Crane RN) 49d. IUGR: No (07/17/2020 11:45:Lilliam Crane RN) 49e. Infertility Treatment: No (07/17/2020 11:45:Lilliam Crane RN) 49f. Previous Cesareans: 0 (07/17/2020 11:45:Lilliam Crane RN) Mother's Height 50b. Height Inches: 65 (07/17/2020 11:51:QS system process) Mother's Weight 51a. Pre- Weight (lbs): 95 (07/17/2020 11:45:Lilliam Crane RN) 51b. Weight at Delivery (lbs): 136 (08/05/2020 06:54:QS system process) 52. Dt Last Normal Menses Began: 08/04/2020 00:00 (07/17/2020 11:45:Marie Dempsey RN) Infections Present/Treated 53a. Gonorrhea: No (07/17/2020 11:45:Lilliam Crane RN) Results this Hospital Visit : Negative (07/17/2020 11:45:Marie Dempsey RN) 53b. Syphilis: No (07/17/2020 11:45:Lilliam Crane RN) 53c. Chlamydia: No (07/17/2020 11:45:Lilliam Crane RN) Results this Hospital Visit: Negative (07/17/2020 11:45:Marie Dempsey RN) 53d. Hepatitis B: No (07/17/2020 11:45:Lilliam Crane RN) Results this Hospital Visit: Negative (07/17/2020 11:45:Marie Dempsey RN) 53e. Hepatitis C: Negative (07/17/2020 11:45:Graciela Haas RN) 53h. Mother Tested for HBsAG: Yes (07/17/2020 11:45:Marie Dempsey RN) 53i. Date Tested: 12/24/2019 00:00 (07/17/2020 11:45:Marie Dempsey RN) 53j. Test Result: Negative (07/17/2020 11:45:Marie Dempsey RN) Obstetric Procedures 54a, b, c. Obstetric Procedures: Ultrasound; NST (07/17/2020 11:45:Graciela Haas RN) Cigarette Smoking 55a. 3 Months Before Preg - Ci (07/17/2020 11:45:Lilliam Crane RN) 55a. Packs: 0 (07/17/2020 11:45:Lilliam Crane RN) 55b. 1st Trimester of Preg- Ci (07/17/2020 11:45:Lilliam Crane RN) 55b. Packs: 0 (07/17/2020 11:45:Lilliam Crane RN) 55c. 2nd Trimester of Preg- Ci (07/17/2020 11:45:Lilliam Crane RN) 55c. Packs: 0 (07/17/2020 11:45:Lilliam Crane RN) 55d. 3rd Trimester of Preg- Ci (07/17/2020 11:45:Lilliam Crane RN) 55d. Packs: 0 (07/17/2020 11:45:Lilliam Crane RN) Onset of Labor 56a. PROM >12 Hrs: 4.50 (07/17/2020 11:45:QS system process) 56b. Precipitous Labor <3 Hrs: 4 (07/17/2020 11:45:QS system process) 56c. Prolonged Labor > 20 Hrs: 4 (07/17/2020 11:45:QS system process) 57a. Induction of Labor: Induction (07/17/2020 11:45:Cherie Comer RN) 57c. Non-Vertex Presentation A: Vertex (07/17/2020 11:45:Cherie Comer RN) 57g. Moderate/Heavy Meconium: Clear (08/05/2020 10:59:Lilliam Crane RN) 57h. Intolerance of Labor: N/A (07/17/2020 11:45:Cherie Comer RN) : N/A (07/17/2020 11:45:Cherie Comer RN) 57i. Epidural/Spinal Anesthesia: Epidural (07/17/2020 11:45:Cherie Comer RN) Method of Delivery 58a. Forceps - Unsuccessful A: N/A (07/17/2020 11:45:Cherie Comer RN) 58b. Vacuum - Unsuccessful A: N/A (07/17/2020 11:45:Cherie Comer RN) 58c. Presentation at 58c. Presentation at - A : Vertex (07/17/2020 11:45:Cherie Comer RN) 58c. Presentation at - A : N/A (07/17/2020 11:45:Cherie Comer RN) 58c. Presentation at - A : Cephalic (08/05/2020 07:43:Lilliam Crane RN) Final Route and Method of Del 58d. Baby A Route/Delivery: Vaginal (07/17/2020 11:45:Cherie Comer RN) 58e. Trial of Labor Attempted: No (07/17/2020 11:45:Cherie Comer RN) 58e. Trial of Labor Attempted A: N/A (07/17/2020 11:45:Cherie Comer RN) Maternal Morbidity 59b. 3rd or 4th Degree Lacs: Vaginal (07/17/2020 11:45:Shannon Galindo CNM) 59b. 3rd or 4th Degree Lacs: First Degree (07/17/2020 11:45:Lilliam Crane RN) Birthweight Baby A: 3450 (07/17/2020 11:45:Kaylynn Marie RN) 60a. Pounds : 7 (07/17/2020 11:45:QS system process) 60b. Ounces: 10 (07/17/2020 11:45:QS system process) 61. GA at Delivery Baby A: 40.1 (07/17/2020 11:45:Cherie Comer RN) : Full Term- 39- 40.6 Weeks (07/17/2020 11:45:QS system process) 62a. 5 Minute Baby A: 9 (07/17/2020 11:45:QS system process)
--- NOTE | 2020-08-05 16:53 | Delivery Summary ---
Del Sum A-C Datetime Report Generated by CPN: 08/05/2020 16:53 DELIVERY PERSONNEL DELIVERY PERSONNEL: [id number] Delivery Doctor:: Shannon Galindo CNM Labor and Delivery Nurse:: Lilliam Crane RNkettle operator Nurse:: Cherie Comer RN Nursery Nurse:: Apryl Shabazz RN Nursery Nurse:: Leila Maya RN [employer]/BLUEPRINTING AND PHOTOCOPY SUPERVISOR: [employer]/BLUEPRINTING AND PHOTOCOPY SUPERVISOR: Miracle Robertson, [employer] INFORMATION Delivery Anesthesia: Epidural Medications After Delivery: Pitocin 30 Units in 500ml NS/D5W Delivery QBL: 150 Maternal Complications: None Provider Comments: of VMI, delivered JAKY, loose NC x 1, easily reduced,snug fit but no shoulder dystocia, baby vigorous and crying, placed on pts abdoman. Cord clamped and cut after one minute. Cord blood obtained. Placenta S/C/I, ff w/ decreased lochia. IV Pitocin infusing. Laceration repaired. mother and baby left in stable condition, pt plans to breastfeed. QBL 150 ml, Apgars 8,9. Attending MD is Dr Ellis LABOR SUMMARY EDC: 08/04/2020 00:00 No. Babies in Womb: 1 Attempted: No Labor Anesthesia: Epidural LABOR INFORMATION Reason for Induction: Maternal Diabetes Onset of Labor: 08/05/2020 10:59 Complete Dilatation: 08/05/2020 14:58 Oxytocin: Induction Group B Beta Strep: Negative MEMBRANES Membranes Rupture Method: Artificial Rupture of Membranes: 08/05/2020 10:59 Length of Rupture (hr): 4.50 Amniotic Fluid Color: Clear Amniotic Fluid Amount: Small Amniotic Fluid Odor: None STAGES OF LABOR Stage 1 hr: 3 Stage 1 min: 59 Stage 2 hr: 0 Stage 2 min: 31 Stage 3 hr: 0 Stage 3 min: 3 Total Time in Labor hr: 4 Total Time in Labor min: 33 VAGINAL DELIVERY Episiotomy: None Laceration #1: Vaginal Laceration Extension #1: First Degree Laceration Repair: Yes Laceration Repair Note: 1st degree laceration repaired using 3.0 vicryl in the usual fashion Sponge Count Correct: Yes Sharps Count Correct: Yes CSECTION DELIVERY Primary Indication: N/A Secondary Indication: N/A CSection Incidence: N/A Labor: N/A Elective: N/A CSection Incision: N/A BABY A INFORMATION Infant Delivery Date/Time: 08/05/2020 15:29 Method of Delivery: Vaginal Nurse Controlled Delivery: No Born in Route : No : N/A Forceps: N/A Vacuum Extraction: N/A Shoulder Dystocia : No PRESENTATION/POSITION BABY A Presentation: Cephalic Cephalic Presentation: Vertex Vertex Position: Left Occipital Anterior Breech Presentation: N/A PLACENTA INFORMATION BABY A Placenta Delivery Time : 08/05/2020 15:32 Placenta Method of Delivery: Spontaneous Placenta Status: Delivered SCORES BABY A Heart Rate 1 min: >100 bpm Resp Effort 1 min: Good Cry Reflex Irritability 1 min: Cough or Sneeze or Pulls Away Muscle Tone 1 min: Active Motion Color 1 min: Blue/Pale Resuscitation Effort 1 min: Tactile Stimulation SCORE 1 MIN: 8 Heart Rate 5 min: >100 bpm Resp Effort 5 min: Good Cry Reflex Irritability 5 min: Cough or Sneeze or Pulls Away Muscle Tone 5 min: Active Motion Color 5 min: Body Cosmos, Extremities Blue Resuscitation Effort 5 min: N/A SCORE 5 MIN: 9 INFORMATION BABY A Gestational Age at Delivery: 40.1 Gestational Status: Full Term- 39- 40.6 Weeks Outcome : Liveborn Infant Condition : Stable Infant Sex: Male IDENTIFICATION BABY A Infant Verification Date/Time: 08/05/2020 15:58 ID Band Number: [id number] Mother's Name Verified: Yes Infant RN Verifying Infant: Chung Comer RN, RAlexander [place] RN WEIGHT/LENGTH BABY A Birthweight (gm): 3450 Infant Weight (lb): 7 Weight (oz): 10 Infant Length (in): 20.00 Infant Length (cm): 50.80 CORD INFORMATION BABY A No. Cord Vessels: 3 Nuchal Cord : Around Neck x1, Loose Cord Blood Taken: Yes-For Storage (Mom's Blood type +) Infant Suction: None ASSESSMENT BABY A Complications: None Physical Findings at Delivery: Within Normal Limits Infant Respirations: Appears Normal Skin to Skin: Yes Skin to Skin Time (min): 60 Delivery Manager/ALS Called : No Care By: Mychal Gandhi RN Transferred To: Remains with Mother SIGNATURES Assignment: Anjana Ellis MD Signature: with User ID: [email or web address] : with User ID: [email or web address]
[2020-08-05] MEDS ORDERED: METHYLERGONOVINE MALEATE INJ/PF 0.2 MG/1 ML AMPULE ONE (17:01)
[2020-08-05] MEDS ORDERED: METHYLERGONOVINE MALEATE INJ/PF 0.2 MG/1 ML AMPULE IM ONE (17:03)
--- NOTE | 2020-08-05 17:09 | PDOC PROGRESS REPORT ---
Subjective-OB Progress Note for:: 08/05/20 - Delivery day, pt with continued trickle of blood. FF at u/u. s/p buccal Cytotec 200 mcg and IV Pitocin. Total QBL at this point at 320 ml. Will also give IM Methergine to encourage decreased PP bleeding. I&O cath done as well. Pt is A&O x 3 w/ stable VS. Physical Exam (OB) Vital Signs: Intake & Output 08/04/20 08/05/20 08/06/20 06:59 06:59 06:59 Weight 62.1 kg - General General Appearance: Appears well, Alert In distress: None - Maternal Morbidity 59. Maternal Morbidity (serious complications experinced by the mother associated with labor and delivery: None of the above - Lochia Lochia Amount: Moderate 25-50 ml Lochia Color: Rubra/Red - Respiratory Respiratory Status: No respiratory distress - Abdominal Distension: No distension Tenderness: Nontender Objective-Diagnostic Laboratory: 08/05/20 08:40 08/05/20 08/05/20 08/05/20 06:50 08:40 08:40 WBC 7.8 RBC 3.56 L Hgb 10.6 L Hct 30.2 L MCV 85 MCH 29.7 MCHC 35.0 RDW 12.3 Plt Count 153 Seg Neutrophils % 67.5 Urine Color YELLOW Urine Appearance SLIGHTLY-CLOUDY Urine pH 6.0 Ur Specific [place] 1.014 Urine Protein NEGATIVE Urine Glucose (UA) NEGATIVE Urine Ketones NEGATIVE Urine Blood NEGATIVE Urine Nitrite NEGATIVE Ur Leukocyte Esterase LARGE H Blood Type A POSITIVE Antibody Screen NEGATIVE Assessment and Plan(PN) - Assessment and Plan (1) 40 weeks gestation of Is this a current diagnosis for this admission?: Yes (2) GDM, class A1 Is this a current diagnosis for this admission?: Yes (3) Gestational diabetes Qualifiers: Gestational diabetes mellitus control: diet-controlled Trimester: third trimester Qualified Code(s): O24.410 - Gestational diabetes mellitus in , diet controlled Is this a current diagnosis for this admission?: Yes (4) (normal spontaneous vaginal delivery) Is this a current diagnosis for this admission?: Yes Plan: will continue to watch PP bleeding. - Time Spent with Patient Time with patient: 15-25 minutes - Disposition Anticipated Discharge Disposition: Home, Self Care Anticipated Discharge Timeframe: within 48 hours
[2020-08-05] MEDS ORDERED: CARBOPROST TROMETHAMINE INJ 250 MCG/1 ML AMPULE ONE (17:40)
[2020-08-05] MEDS ORDERED: LOPERAMIDE HCL 2 MG CAPSULE ONE ×2 (17:40→17:43)
[2020-08-05] MEDS ORDERED: CARBOPROST TROMETHAMINE INJ 250 MCG/1 ML AMPULE IM PRN (17:46)
[2020-08-05] MEDS ORDERED: LOPERAMIDE HCL 2 MG CAPSULE PO ONE (17:46)
[2020-08-05] MEDS ORDERED: ONDANSETRON HCL INJ/PF 4 MG/2 ML SDV IV ONE (18:06)
[2020-08-05 18:50] LABS: ABSOLUTE EOSINOPHILS # (AUTO) 0.1 10^3/uL (0.0-0.6); ABSOLUTE LYMPHOCYTES (AUTO) 1.6 10^3/uL (0.5-4.7); ABSOLUTE MONOCYTES (AUTO) 1.1 10^3/uL (0.1-1.4); ABSOLUTE NEUT (AUTO) 11.7 10^3/uL (1.7-8.2); BASOPHILS % (AUTO) 0.1 % (0-2); EOSINOPHILS % (AUTO) 0.4 % (0-6); HEMATOCRIT 36.8 % (36.0-47.0); HEMOGLOBIN 12.5 g/dL (12.0-15.5); LYMPHOCYTES % (AUTO) 11.3 % (13-45); MEAN CORPUSCULAR HEMOGLOBIN 28.7 pg (27.0-33.4); MEAN CORPUSCULAR VOLUME 84 fl (80-97); MONOCYTES % (AUTO) 7.5 % (3-13); PLATELET COUNT 158 10^3/uL (150-450); RED BLOOD COUNT 4.36 10^6/uL (3.72-5.28); RED CELL DISTRIBUTION WIDTH 12.3 % (11.5-14.0); SEGMENTED NEUTROPHILS % (AUTO) 80.7 % (42-78); TOTAL CELLS COUNTED % (AUTO) 100 %; WHITE BLOOD COUNT 14.5 10^3/uL (4.0-10.5)
[2020-08-05] MEDS: FAMOTIDINE 20 MG TABLET PO SCH (22:13)
[2020-08-05] MEDS: DOCUSATE SODIUM 100 MG CAPSULE PO SCH (22:16)
[2020-08-05] MEDS: BENZOCAINE/MENTHOL AEROSOL SPRAY 56 ML TOP PRN (23:37)
[2020-08-06] MEDS: IBUPROFEN 800 MG TABLET PO SCH ×3 (06:23→21:59)
[2020-08-06 06:43] LABS: HEMATOCRIT 29.9 % (36.0-47.0); HEMOGLOBIN 10.4 g/dL (12.0-15.5); MEAN CORPUSCULAR HEMOGLOBIN 29.4 pg (27.0-33.4); MEAN CORPUSCULAR VOLUME 84 fl (80-97); PLATELET COUNT 143 10^3/uL (150-450); RED BLOOD COUNT 3.55 10^6/uL (3.72-5.28); WHITE BLOOD COUNT 10.4 10^3/uL (4.0-10.5)
[2020-08-06] MEDS: DOCUSATE SODIUM 100 MG CAPSULE PO SCH ×2 (10:39→17:22)
[2020-08-06] MEDS: FERROUS SULFATE 325 MG TABLET PO SCH (10:39)
[2020-08-06] MEDS: FAMOTIDINE 20 MG TABLET PO SCH ×2 (10:39→21:59)
[2020-08-06] MEDS: PRENATAL VITAMIN W DHA CAPSULE PO SCH (10:39)
[2020-08-06] MEDS: SENNOSIDES/DOCUSATE 8.6-50 MG 1 EACH TABLET PO SCH (10:40)
--- NOTE | 2020-08-06 14:42 | PDOC PROGRESS REPORT ---
Subjective-OB Progress Note for:: 08/06/20 Subjective: 30yo L3 s/p ppd 1. Pt reports pain well controlled with medication, doing well but had catheter placed last night because she wasn't able to void and she was told she would get it removed this AM and no one has come to take it out yet. Ready to shower and move around. No other concerns. Physical Exam (OB) Vital Signs: Temp Pulse Resp BP Pulse Ox 98.2 F 61 16 102/58 L 100 08/06/20 12:00 08/06/20 12:00 08/06/20 12:00 08/06/20 12:00 08/06/20 12:00 Intake & Output 08/05/20 08/06/20 08/07/20 06:59 06:59 06:59 Intake Total 800 680 Output Total 2400 Balance -1600 680 Weight 62.1 kg - General General Appearance: Appears well In distress: None - PIH/Pre-Eclampsia Clonus: Negative Headache: Absent Epigastric Pain: No Visual Changes: No - Maternal Morbidity 59. Maternal Morbidity (serious complications experinced by the mother associat ed with labor and delivery: None of the above - Episiotomy/Laceration Site Condition: Well Approximated - Lochia Lochia Amount: Small 10-25 ml Lochia Color: Rubra/Red - Abdomen Description: Soft Hernia Present: No Fundal Description: Firm, Midline Fundal Height: u/u - u/2 - Respiratory Respiratory Status: No respiratory distress - Extremities Upper extremity: Normal inspection Lower extremities: Normal inspection - Neurological Cognition: Normal Orientation: AAOx4 - Psychological Associated symptoms: Normal affect, Normal mood Objective-Diagnostic Laboratory: 08/06/20 06:21 08/05/20 08/06/20 18:23 06:21 WBC 14.5 H 10.4 RBC 4.36 3.55 L Hgb 12.5 10.4 L D Hct 36.8 29.9 L MCV 84 84 MCH 28.7 29.4 MCHC 34.0 35.0 RDW 12.3 12.0 Plt Count 158 143 L Seg Neutrophils % 80.7 H Assessment and Plan(PN) - Assessment and Plan (1) Vaginal delivery Is this a current diagnosis for this admission?: Yes Plan: routine pp care (2) Obstetric vaginal laceration Qualifiers: Perineal laceration presence: with perineal laceration Perineal laceration degree: first degree Qualified Code(s): O70.0 - First degree perineal laceration during delivery Is this a current diagnosis for this admission?: Yes Plan: continue to monitor for s/s of infection. Unable to void on her own last night and pinzon cath was placed, ok to remove right now-Dr. Shawnee pastrana CUSTOM STUDIO COORDINATOR in room at time of rounds and will remove at this time (3) Anemia complicating in third trimester Is this a current diagnosis for this admission?: Yes Plan: increase dietary iron and FeSO4 BID (4) 40 weeks gestation of Is this a current diagnosis for this admission?: Yes Plan: delivered (5) GDM, class A1 Is this a current diagnosis for this admission?: Yes Plan: routine monitoring as indicated in (will need fasting at PP visit) - Time Spent with Patient Time with patient: Less than 15 minutes Medications reviewed and adjusted accordingly: Yes - Disposition Anticipated Discharge Disposition: Home, Self Care Anticipated Discharge Timeframe: within 24 hours
[2020-08-07] MEDS: IBUPROFEN 800 MG TABLET PO SCH (05:11)
[2020-08-07 08:44] VITALS: BP 105/63
--- NOTE | 2020-08-07 09:40 | PDOC DISCHARGE SUMMARY ---
Impression - Admit/DC Date/PCP Admission Date/Primary Care Provider: 08/05/20 06:41 Discharge Date: 08/07/20 - Discharge Diagnosis (1) 40 weeks gestation of Is this a current diagnosis for this admission?: Yes (2) Anemia complicating in third trimester Is this a current diagnosis for this admission?: Yes (3) GDM, class A1 Is this a current diagnosis for this admission?: Yes (4) Obstetric vaginal laceration Is this a current diagnosis for this admission?: Yes (5) Vaginal delivery Is this a current diagnosis for this admission?: Yes - Additional Information Resuscitation Status: Full Code Discharge Diet: Regular Discharge Activity: Balance Activity w/Rest, Pelvic Rest Prescriptions: Ibuprofen [Motrin 800 mg Tablet] 800 mg PO Q8HP PRN #60 tablet PRN Reason: Home Medications: Prenat 115/Iron Fum/Folic/Dss [ 19 Tablet] 1 tab PO DAILY 01/05/18 Ibuprofen [Motrin 800 mg Tablet] 800 mg PO Q8HP PRN #60 tablet 08/07/20 HPI Gestational Age: 40.1 Reason(s) for Admission: Induction of Labor, Gestional Diabetes Procedures: NST Intrapartum Procedure(s): Spontaneous Vaginal Delivery Complication(s): Laceration-Vaginal Laceration-Degree: 1st Hospital Course 59. Maternal Morbidity (serious complications experinced by the mother associated with labor and delivery: None of the above Results Laboratory Results: WBC 10.4 10^3/uL (4.0-10.5) 08/06/20 06:21 RBC 3.55 10^6/uL (3.72-5.28) L 08/06/20 06:21 Hgb 10.4 g/dL (12.0-15.5) L D 08/06/20 06:21 Hct 29.9 % (36.0-47.0) L 08/06/20 06:21 MCV 84 fl (80-97) 08/06/20 06:21 MCH 29.4 pg (27.0-33.4) 08/06/20 06:21 MCHC 35.0 g/dL (32.0-36.0) 08/06/20 06:21 RDW 12.0 % (11.5-14.0) 08/06/20 06:21 Plt Count 143 10^3/uL (150-450) L 08/06/20 06:21 Lymph % (Auto) 11.3 % (13-45) L 08/05/20 18:23 [place] % (Auto) 7.5 % (3-13) 08/05/20 18:23 Eos % (Auto) 0.4 % (0-6) 08/05/20 18:23 Baso % (Auto) 0.1 % (0-2) 08/05/20 18:23 Absolute Neuts (auto) 11.7 10^3/uL (1.7-8.2) H 08/05/20 18:23 Absolute Lymphs (auto) 1.6 10^3/uL (0.5-4.7) 08/05/20 18: Absolute Monos (auto) 1.1 10^3/uL (0.1-1.4) 08/05/20 18: Absolute Eos (auto) 0.1 10^3/uL (0.0-0.6) 08/05/20 18:23 Absolute Basos (auto) 0.0 10^3/uL (0.0-0.2) 08/05/20 18: Seg Neutrophils % 80.7 % (42-78) H 08/05/20 18:23 Urine Color YELLOW 08/05/20 06:50 Urine Appearance SLIGHTLY-CLOUDY 08/05/20 06:50 Urine pH 6.0 (5.0-9.0) 08/05/20 06:50 Ur Specific [place] 1.014 08/05/20 06:50 Urine Protein NEGATIVE mg/dL (NEGATIVE) 08/05/20 06:50 Urine Glucose (UA) NEGATIVE mg/dL (NEGATIVE) 08/05/20 06:50 Urine Ketones NEGATIVE mg/dL (NEGATIVE) 08/05/20 06:50 Urine Blood NEGATIVE (NEGATIVE) 08/05/20 06:50 Urine Nitrite NEGATIVE (NEGATIVE) 08/05/20 06:50 Urine Bilirubin NEGATIVE (NEGATIVE) 08/05/20 06:50 Urine Urobilinogen 2.0 mg/dL (<2.0) H 08/05/20 06:50 Ur Leukocyte Esterase LARGE (NEGATIVE) H 08/05/20 06:50 Urine Ascorbic Acid NEGATIVE (NEGATIVE) 08/05/20 06:50 Urine Opiates Screen NEGATIVE 08/05/20 06:50 Urine Methadone Screen NEGATIVE 08/05/20 06:50 Ur Barbiturates Screen NEGATIVE 08/05/20 06:50 Ur Phencyclidine Scrn NEGATIVE 08/05/20 06:50 Ur Amphetamines Screen NEGATIVE 08/05/20 06:50 U Benzodiazepines Scrn NEGATIVE 08/05/20 06:50 Urine Cocaine Screen NEGATIVE 08/05/20 06:50 U Marijuana (THC) Screen NEGATIVE 08/05/20 06:50 RPR NONREACTIVE (NONREACTIVE) 08/05/20 08:40 Blood Type A POSITIVE 08/05/20 08:40 Antibody Screen NEGATIVE 08/05/20 08:40 Plan Plan of Treatment: f/u at [facility] for [facility]PC[facility] Time Spent: Less than 30 Minutes
[2020-08-07] MEDS: BENZOCAINE/MENTHOL AEROSOL SPRAY 56 ML TOP PRN (09:45)
[2020-08-07] MEDS: DOCUSATE SODIUM 100 MG CAPSULE PO SCH (09:46)
[2020-08-07] MEDS: FERROUS SULFATE 325 MG TABLET PO SCH (09:46)
[2020-08-07] MEDS: FAMOTIDINE 20 MG TABLET PO SCH (09:46)
[2020-08-07] MEDS: PRENATAL VITAMIN W DHA CAPSULE PO SCH (09:46)
[2020-08-07] MEDS: SENNOSIDES/DOCUSATE 8.6-50 MG 1 EACH TABLET PO SCH (09:46)
== END 2020-08-07 13:06 | disposition home or self-care (01) | DRG 807 ==
LOC: LR 06:41 → 2S 20:20
PROVIDERS: ADMIT Obstetrics & Gynecology; ATTEND Obstetrics & Gynecology
PROC: 10E0XZZ Delivery of Products of Conception, External Approach (ICD-10-PCS; principal; 2020-08-05)
PROC: 0HQ9XZZ Repair Perineum Skin, External Approach (ICD-10-PCS; 2020-08-05)
PROC: 3E033VJ Introduction of Other Hormone into Peripheral Vein, Percutaneous Approach (ICD-10-PCS; 2020-08-05)
PROC: 10907ZC Drainage of Amniotic Fluid, Therapeutic from Products of Conception, Via Natural or Artificial Opening (ICD-10-PCS; 2020-08-05)
DX: O24.420 Gestational diabetes mellitus in childbirth, diet controlled (principal); Z37.0 Single live birth; O99.02 Anemia complicating childbirth; D64.9 Anemia, unspecified; O70.0 First degree perineal laceration during delivery; O69.81X0 Labor and delivery complicated by cord around neck, without compression, not applicable or unspecified; Z03.818 Encounter for observation for suspected exposure to other biological agents ruled out; Z3A.40 40 weeks gestation of pregnancy; Z87.891 Personal history of nicotine dependence
CPT/HCPCS: 1967; 36415; 80307; 81005; 85025; 85027; 86592; 86850; 86900; 86901; 94760; J2210; J2300; J2405; J2590; J2795; J3010; J3490